=== PATIENT | male | born 1965 | race Caucasian/White ===

== ENCOUNTER → 2016-11-07 | Outpatient (CLI) | payer OTHER ==
[~2016-11-07] MED LIST: CATHETER FLUSH 10 ML SYR IV PRN; REGADENOSON 0.4 MG/5 ML SYR (LEXISCAN) IV ONE
[2016-11-07 08:57] VITALS: BP 148/94
[2016-11-07 09:15] VITALS: BP 124/98
[2016-11-07 09:17] VITALS: BP 125/94
[2016-11-07 09:19] VITALS: BP 132/92
[2016-11-07 09:20] VITALS: BP 142/93
--- NOTE | 2016-11-12 09:15 | STRESS TEST ---
PROCEDURE PHYSICIAN: TIGRE SOTO RESTING AND POST REGADENOSON TECHNETIUM 99M TETROFOSMIN SPECT CT IMAGING DATE OF PROCEDURE: 11/07/2016 ORDERING PHYSICIAN: Brayden Guaman APRN. PRIMARY PHYSICIAN: Dr. Ivan CLINICAL DIAGNOSIS: Abnormal stress test Baseline images were carried out after injection of 10 mCi technetium 99 tetrofosmin. This was followed by 0.4 mg regadenoson and 31.3 mCi of technetium 99m tetrofosmin for stress imaging. The electrocardiogram showed sinus rhythm at baseline and it did not change significantly with regadenoson infusion. The patient reported mild shortness of breath following regadenoson infusion, which resolved in a few minutes. Review of images at rest and following stress, does not indicate any significant perfusion defect consistent with myocardial ischemia or infarction. Gated images show normal global left ventricular systolic function with normal regional wall motion. Left ventricular ejection fraction is calculated to be 78%. Left end-diastolic volume is 63 mL. TID is absent (1.04). CONCLUSIONS: 1. No evidence of myocardial or infarction on this study. 2. Normal regional wall motion. 3. Normal global left ventricular systolic function with a calculated ejection fraction of 78%. Job ID: [id number] Dictated Date: 11/11/2016 12:08:52 Silk Snapper Date: 11/12/2016 09:09:09 / john
== END ==
LOC: CARD 07:34
PROVIDERS: ATTEND Nurse Practitioner Family
DX: R94.39 Abnormal result of other cardiovascular function study (principal)
CPT/HCPCS: 78452; 93017

== ENCOUNTER → 2017-10-09 | Outpatient (CLI) | payer BC ==
--- NOTE | 2017-10-09 10:05 | Diagnostic Imaging Report ---
EXAMINATION: Right shoulder at 8:49 AM. INDICATION: Shoulder pain. FINDINGS: Two frontal views were obtained. There is no fracture, dislocation or acute bony abnormality evident. There is at least moderate degenerative disease of the glenohumeral and acromioclavicular joints. The soft tissues are unremarkable. IMPRESSION: 1. There is no evidence for an acute bony abnormality. 2. If there is clinical concern regarding injury to the rotator cuff or labrum, MRI would be recommended for further study. Dictated by: Dictated on workstation # [id number]
== END ==
LOC: RAD 08:23
PROVIDERS: ATTEND Nurse Practitioner Family
DX: M25.511 Pain in right shoulder (principal)
CPT/HCPCS: 73030

== ENCOUNTER → 2018-05-21 | Outpatient (REF) ==
--- NOTE | 2018-05-21 13:48 | Diagnostic Imaging Report ---
EXAMINATION: Left foot, three views. COMPARISON: None. HISTORY: 52-year-old male, left foot injury. Left foot pain. FINDINGS: There is sideplate and screw fixation hardware along the calcaneus. There is mild degenerative type enthesopathy at the insertion of the Achilles tendon. There is a small calcaneal heel spur. There is no identified acute fracture. There is no cortical or aggressive bone destruction. There is no additional radiopaque foreign body. There is no periosteal reaction. The joint spaces are well preserved. IMPRESSION: 1. No identified acute bony abnormality of the left foot. 2. Intact sideplate and screw fixation hardware at the level of the calcaneus. Dictated by: Dictated on workstation # [id number]
== END | disposition home or self-care (01) ==
LOC: OCC 13:15
PROVIDERS: ATTEND Nurse Practitioner Family
CPT/HCPCS: 73630

== ENCOUNTER 2020-04-24 05:31 | Outpatient (RCR) | payer BC ==
[~2020-04-24] VITALS: Ht 175.3 cm; Wt 121.0 kg
[~2020-04-24 05:31] MED LIST changes: +ATOR20TA66 PO; -CATHETER FLUSH 10 ML SYR IV PRN; +CELE400C PO; +CITA40TA11 PO; +LEVO-129 PO; +OMEP40CA27 PO; -REGADENOSON 0.4 MG/5 ML SYR (LEXISCAN) IV ONE
== END 2020-04-24 11:10 | disposition home or self-care (01) ==
LOC: PREOP 05:31
PROVIDERS: ATTEND Surgery
DX: Z01.812 Encounter for preprocedural laboratory examination (principal); Z12.11 Encounter for screening for malignant neoplasm of colon; Z20.828 Contact with and (suspected) exposure to other viral communicable diseases
CPT/HCPCS: 87635

== ENCOUNTER 2020-04-26 11:34 | Day surgery (SDC) | payer BC ==
[~2020-04-26] VITALS: Ht 175.3 cm; Wt 121.0 kg
[2020-04-26] VITALS (12 sets, daily range): BP systolic 129–180; BP diastolic 74–104
[2020-04-26] MEDS ORDERED: NS IV 500 ML 500 ML IV PRN (11:38)
[2020-04-26] MEDS ORDERED: NS IV 500 ML 500 ML ONE (11:43)
[2020-04-26] MEDS ORDERED: fentaNYL INJECTION 100 MCG/2 ML AMP IVP ONE (11:45)
[2020-04-26] MEDS ORDERED: LIDOCAINE JELLY 2% 6 ML SYRINGE MM PRN (11:45)
[2020-04-26] MEDS ORDERED: LIDOCAINE JELLY 2% 6 ML SYRINGE ONE (12:02)
[2020-04-26] MEDS ORDERED: MIDAZOLAM 5 MG/5 ML (VERSED) VIAL ONE ×2 (12:02→12:03)
[2020-04-26] MEDS ORDERED: fentaNYL INJECTION 100 MCG/2 ML AMP ONE (12:03)
[2020-04-26] MEDS: MIDAZOLAM 5 MG/5 ML (VERSED) VIAL IV PRN ×4 (12:06→12:20)
--- NOTE | 2020-04-26 12:37 | Conscious Sedation/ASA ---
Conscious Sedation Pre-Proced Time 11:30 ASA Score 2 For ASA 3 and 4: Consider anesthesia and medical clearance. Also, for patients with a history of failed moderate sedation consider anesthesia. Airway Lungs Heart ASA score ASA 1: a normal healthy patient ASA 2: a patient with a mild systemic disease (mid diabetes, controlled hypertension, obesity ASA 3: a patient with a severe systemic disease that limits activity (angina, COPD, prior Myocardial infarction) ASA 4: a patient with an incapacitating disease that is a constant threat to life (CHF, renal failure) ASA 5: a moribund patient not expected to survive 24 hrs. (ruptured aneurysm) ASA 6: a declared brain- patient whose organs are being harvested. For emergent operations, add the letter E after the classification Mallampati Classification Grade 3 Sedation Plan Analgesia, Amnesia, Plan communicated to team members, Discussed options with patient/fam, Discussed risks with patient/fam The patient is an appropriate candidate to undergo the planned procedure, sedation, and anesthesia. The patient immediately re-assessed prior to indication. FILEMON BELL MD Apr 26, 2020 12:37
--- NOTE | 2020-04-26 12:38 | Progress Note-Pre Operative ---
Pre-Operative Progress Note H&P Reviewed The H&P was reviewed, patient examined and no changes noted. Date Seen by Provider: Apr 26, 2020 Time Seen by Provider: 11:30 Date H&P Reviewed: Apr 26, 2020 Time H&P Reviewed: 11:30 Pre-Operative Diagnosis: screening colonoscopy FILEMON BELL MD Apr 26, 2020 12:38
--- NOTE | 2020-04-26 12:41 | Progress Note-Post Operative ---
Post-Operative Progess Note Surgeon (s)/Zoning Engineer (s) Surgeon FILEMON BELL MD Zoning Engineer: none Pre-Operative Diagnosis screening colonoscopy Post-Operative Diagnosis chronic stage 2 ext and int hemorrhoids, moderate sigmoid diverticulosis. Procedure & Operative Findings Date of Procedure 04/26/20 Procedure Performed/Findings colonoscopy Anesthesia Type cs Estimated Blood Loss Estimated blood loss (mL): minimal Specimens/Packing Specimens Removed none FILEMON BELL MD Apr 26, 2020 12:41
--- NOTE | 2020-04-26 12:44 | Discharge Inst-Surgical ---
D/C Lap Instructions-RAY Follow Up 10yrs of sooner if symptomatic. Activity as tolerated High Fiber Diet 25g or more per day Avoid Alcohol, Caffeine, Spicy [place] and Acid foods. Drink 64 fluid oz or more of fluids per day. Symptoms to Report: Fever over 101 degree F, Nausea/Vomiting If any problems/questions: Contact your physician or go to Emergency Room FILEMON BELL MD Apr 26, 2020 12:43
[2020-04-26] MEDS ORDERED: HYDROcodone/APAP 5 MG/325 MG (LORTAB) TAB PO PRN (12:45)
[2020-04-26] MEDS ORDERED: morphine INJ 10 MG/ML 1ML (SYR OR VIAL) IVP PRN ×2 (12:45)
[2020-04-26] MEDS ORDERED: ONDANSETRON 4 MG/2 ML (SDV) Z0FRAN IVP PRN (12:45)
[2020-04-26] MEDS ORDERED: ACETAMINOPHEN 325 MG TABLET PO PRN (12:45)
--- OUTSIDE RECORDS SUMMARY | 2020-04-26 13:11 | XMS REPORT | Continuity of Care Document ---
Author Organization Unknown Address Unknown Phone Unavailable Allergies Active Description Code Type Severity Reaction Onset Reported/Identified Relationship to Patient Clinical Status Yes No Allergy Information Available [id number] Drug Allergy Unknown N/A 017 Yes No Known Drug Allergies [id number] Drug Allergy Unknown N/A 04/20/2020 Medications There is no data. Problems Date Dx Coded Attending Type Code Diagnosis Diagnosed By 11/08/2016 CORKY DUENAS APRN Ot R94.39 ABNORMAL RESULT OF OTHER CARDIOVASCULAR 11/20/2016 CORKY DUENAS APRN Ot R94.39 ABNORMAL RESULT OF OTHER CARDIOVASCULAR 10/23/2017 CORKY DUENAS APRN Ot M25.511 PAIN IN RIGHT SHOULDER 04/20/2020 CORKY DUENAS APRN Ot R94.39 ABNORMAL RESULT OF OTHER CARDIOVASCULAR Procedures There is no data. Results Test Result Range COVID-19 ([facility]) - 03/21/20 15:51 Encounters ACCT No. Visit Date/Time Discharge Status Pt. Type Provider Facility Loc./Unit Complaint [id number] 03/21/2020 15:00:00 03/21/2020 23:59: 59 C[facility] [id number] 03/21/2020 15:00:00 Document Registration [id number] 04/24/2020 05:31:00 020 11:10:00 DIS Outpatient FILEMON BELL MD [facility] PREOP SCREENING [id number] 10/09/2017 08:23:00 018 23:59:59 CLS Outpatient CORKY DUENAS APRN [facility] RAD M25.511 [id number] 11/07/2016 07:34:00 017 23:59:59 CLS Outpatient CORKY DUENAS APRN [facility] CARD ABNORMAL RESULT OF OTHE R CARDIOVASCULAR STUDY [id number] 04/26/2020 12:00:00 Gris BELL MD, FILEMON [facility] END[facility] SCREENING [id number] 06/10/2018 13:01:00 Document Registration
--- OUTSIDE RECORDS SUMMARY | 2020-04-26 13:11 | XMS REPORT ---
Author Author [employer] [facility] [employer] [facility] [employer] [facility] [employer] Address [address] [address] Care Team Providers Care Fleet Mechanic Name Role Phone CORKY DUENAS APRN Unavailable Unavailable PCP, OUTSIDE Unavailable Unavailable CORKY DUENAS APRN Unavailable Unavailable FILEMON BELL MD Unavailable Unavailable Unavailable Unavailable Unavailable Unavailable Unavailable Unavailable Allergies No Information Encounters Encounter Date Encounter Type Encounter Diagnosis Care Provider Facility Start: Patient encounter FILEMON BELL MD [facility] 04-26-2020 [facility] Start: Patient encounter FILEMON BELL MD [facility] End: 04-24-2020 Start: Patient encounter FILEMON BELL MD [facility] 04-20-2020 [facility] Start: Patient encounter OUTSIDE [facility] 07-02-2019 procedure [facility] ([id number]) Start: Patient encounter NA NA Not Availab le ([id number]) 05-21-2018 procedure Start: Patient encounter CORKY DUENAS Not Availab le ([id number]) 10-09-2017 procedure Start: Patient encounter VANDAPETR DUENAS Not Availab le ([id number]) 11-07-2016 procedure Start: Patient encounter CORKY DUENAS NETWORKING SPECIALIST [facility] 11-07-2016 procedure [facility] Medical Equipment No Information Goals No Information Immunizations No Information Interventions No Information Medications No Information Payers No Information Plan of Treatment No Information Problems Problem Problem Date Last Documented Episodic/Chr Provider Classificati Recorded Date onic on Other Pain in right shoulder Episodic DEE DUENAS non-traumati c joint disorders (1 source) Other Abnormal result of other 04-20-2020 Episodic Yvette DUENAS screening cardiovascular function study NETWORKING SPECIALIST for suspected conditions (not mental disorders or infectious disease) (3 sources) Procedures No Information Results No Information Social History No Information Vital Signs No Information Functional Status No Information Mental Status No Information Additional Source Comments This clinical document has been generated using nprogress software that has been certified by the Office of the National Coordinator for Health Information Technology (ONC 15.99.04.3023.Diam.31.00.0.633656) and the National Committee for [employer] (NCQA, as an eMeasure certified technology). FOR RECORDS PERTAINING TO PATIENTS WHO ARE OR HAVE BEEN ENROLLED IN A CHEMICAL D EPENDENCY/SUBSTANCE ABUSE PROGRAM, SOME INFORMATION MAY BE OMITTED. This clinica l summary was aggregated from multiple sources. Caution should be exercised in using it in the provision of clinical care. This summary normalizes information from multiple sources, and as a consequence, information in this document may ma terially change the coding, format and clinical context of patient data. In taylor tion, data may be omitted in some cases. CLINICAL DECISIONS SHOULD BE BASED ON T HE PRIMARY CLINICAL RECORDS. [employer] provides no warranty or guara ntee of the accuracy or completeness of information in this document.The followi ng information is based on time limited clinical information
--- NOTE | 2020-04-26 21:13 | OPERATIVE REPORT ---
DATE OF SERVICE: 04/26/2020 ATTENDING PRIMARY CARE PHYSICIAN: Dr. King Ivan. PREOPERATIVE DIAGNOSIS: Screening colonoscopy. POSTOPERATIVE DIAGNOSES: Mild chronic stage II external and internal hemorrhoids, moderate sigmoid diverticulosis. PROCEDURE: Colonoscopy. SURGEON: Filemon Bell MD. ANESTHESIA: Conscious sedation. ESTIMATED BLOOD LOSS: Minimal. FINDINGS: Mild chronic stage II external and internal hemorrhoids, moderate sigmoid diverticulosis. DISPOSITION: The patient tolerated the procedure well. INDICATIONS: The patient is a 54-year-old male referred over to us for screening colonoscopy. He has not had a colonoscopy up to this point in his life. He states for the most part he is doing well, does not report any major issues with diarrhea nor constipation as well as no red blood per rectum nor any dark tarry stools. He also does not report any family history of colon cancer. DESCRIPTION OF PROCEDURE: The patient was brought to the endoscopy suite, laid in the left lateral decubitus position. After adequate IV pain and sedated medications and conscious sedation anesthesia, a digital rectal examination was performed. Mild chronic stage II external and internal hemorrhoids identified, not actively edematous nor inflamed and no bleeding. Normal sphincter tone was felt and there were no palpable masses. Prostate gland was palpable and appeared normal. The endoscope was then intubated to the anus and rectum gently insufflated. The endoscope was then advanced through the valves of [place] of the rectum with no polyps or any neoplasms identified. We then proceeded through the sigmoid colon where a moderate sigmoid diverticulosis identified. There were no mucosal inflammatory changes to indicate any active diverticulitis. The endoscope was then advanced through the remainder of the descending, transverse and ascending colon to the cecum. These segments were normal. There were no polyps or any neoplasms identified throughout the colon or rectum. The endoscope was then slowly withdrawn while taking a second look and suctioning of residual air with no additional findings. The patient tolerated the procedure well. We will recommend medical management with a high fiber diet with at least 30 grams of fiber daily as well as significant amounts of water to promote soft stools on a daily basis with the goal being soft stools on a regular basis and prevent any further propagation of diverticulosis or complications related to it. If he is asymptomatic, he does not need another colonoscopy for another 10 years. Job ID: [id number] DocumentID: [id number] Dictated Date: 04/26/2020 12:32:56 Dental Practice Manager Date: 04/26/2020 21:12:13 Dictated By: FILEMON BELL MD
== END 2020-04-26 13:05 | disposition home or self-care (01) ==
LOC: ENDO 11:34
PROVIDERS: ATTEND Surgery
DX: Z12.11 Encounter for screening for malignant neoplasm of colon (principal); K57.30 Diverticulosis of large intestine without perforation or abscess without bleeding; K64.1 Second degree hemorrhoids; E78.00 Pure hypercholesterolemia, unspecified; F41.9 Anxiety disorder, unspecified; F32.9 Major depressive disorder, single episode, unspecified; K21.9 Gastro-esophageal reflux disease without esophagitis; E03.9 Hypothyroidism, unspecified; Z79.899 Other long term (current) drug therapy